=== PATIENT | female | born 2000 ===

== ENCOUNTER 2021-01-10 11:44 | Outpatient (CLI) | payer OTHER ==
[~2021-01-10 11:44] MED LIST: NO TOMA MEDICAMENTO
== END 2021-01-10 11:57 | disposition home or self-care (01) ==
LOC: RAD 11:44
PROVIDERS: ATTEND Family Medicine
DX: M77.41 Metatarsalgia, right foot (principal)

== ENCOUNTER 2024-08-11 10:14 | Outpatient (CLI) | payer OTHER | END 2024-08-11 10:30 | disposition home or self-care (01) | LOC: SONOGRAMA 10:14 | PROVIDERS: ATTEND Family Medicine | DX: R10.2 Pelvic and perineal pain (principal) ==